=== PATIENT | female | born 1950 | race African-American/Black ===

== ENCOUNTER → 2016-12-10 | Outpatient (CLI) | payer MEDICARE, OTHER ==
--- NOTE | 2016-12-10 12:34 | WOMENS IMAGING REPORT ---
EXAM DESCRIPTION: U/S NON OB PEL W/DOPPLER; TRANSVAGINAL ULTRASOUND COMPLETED DATE/TIME: 12/10/2016 11:19 am REASON FOR STUDY: N93.9 U/S PELVIS; N93.9 COMPARISON: None. TECHNIQUE: Dynamic and static grayscale images acquired of the pelvis via transabdominal and transva ginal approach and recorded on PACS. Additional selected color Doppler and spectral images recorded. LIMITATIONS: None. FINDINGS: UTERUS: Surgically absent. ENDOMETRIAL STRIPE: Surgically absent. CERVIX: No nabothian cysts. RIGHT OVARY: Surgically absent. LEFT OVARY: Surgically absent. FREE FLUID: None noted. OTHER: Normal urinary bladder. IMPRESSION: No abnormality identified. TECHNICAL DOCUMENTATION: JOB ID: [id number]
== END ==
LOC: WI 10:13
PROVIDERS: ATTEND Specialist
DX: N93.9 Abnormal uterine and vaginal bleeding, unspecified (principal)
CPT/HCPCS: 76830; 76856; 93976

== ENCOUNTER → 2017-04-07 | Outpatient (CLI) | payer MEDICARE, OTHER ==
--- NOTE | 2017-04-07 10:49 | WOMENS IMAGING REPORT ---
EXAM DESCRIPTION: BILAT SCREENING MAMMO W/CAD COMPLETED DATE/TIME: 04/07/2017 9:48 am REASON FOR STUDY: SCREENING MAMMO Z12.31 ENCNTR SCREEN MAMMOGRAM FOR MALIGNANT NEOPLASM OF AB COMPARISON: 04/06/2016 and 03/18/2015. TECHNIQUE: Standard craniocaudal and mediolateral oblique views of each breast recorded using [employer] acquisition. LIMITATIONS: None. FINDINGS: No masses, calcifications or architectural distortion. No areas of suspicion. Read with the assistance of CAD. .[facility] - R2 Cenova Version 1.3 .[facility] Imaging - R2 Cenova Version 1.3 .[facility] Imaging - R2 Cenova Version 2.4 .[facility] - R2 Cenova Version 2.4 .[facility] - R2 Market Master Version 9.2 IMPRESSION: NORMAL MAMMOGRAM. BIRADS 1. BREAST DENSITY: b. There are scattered areas of fibroglandular density. BIRAD: 1 NEGATIVE RECOMMENDATION: ROUTINE SCREENING COMMENT: The patient has been notified of the results by letter per SA requirements. Additional no tification policies are in place for contacting patient with suspicious or incomplete findings. Quality ID #[id number]: The [employer] recommends an annual screening mammogram for women aged 40 years or over. This facility utilizes a reminder system to ensure that all patients receive reminder letters, and/or direct phone calls for appointments. This includes reminders for routine scr eening mammograms, diagnostic mammograms, or other Breast Imaging Interventions when appropriate. Th is patient will be placed in the appropriate reminder system. The [employer] (ACR) has developed recommendations for screening MRI of the breast s in certain patient populations, to be used in conjunction with mammography. Breast MRI surveillanc e may be appropriate for women with more than 20% lifetime risk of developing breast cancer as deter mined by genetic testing, significant family history of the disease, or history of mantle radiation f or Hodgkins Disease. ACR Practice Guidelines 2008. TECHNICAL DOCUMENTATION: FINDING NUMBER: (1) ASSESSMENT: (1) JOB ID: [id number] [facility]- All Rights Reserved
== END ==
LOC: WI 08:45
PROVIDERS: ATTEND Family Medicine
DX: Z12.31 Encounter for screening mammogram for malignant neoplasm of breast (principal)
CPT/HCPCS: 77067; G0202

== ENCOUNTER → 2017-08-29 | Outpatient (CLI) | payer MEDICARE, OTHER ==
--- NOTE | 2017-08-29 10:10 | WOMENS IMAGING REPORT ---
EXAM DESCRIPTION: BONE DENSITY HIP/SPINE COMPLETED DATE/TIME: 08/29/2017 9:46 am REASON FOR STUDY: AGE-RELATED OSTEOPROSIS; M81.0 M81.0 AGE-RELATED OSTEOPOROSIS W/O CURRENT PATHOLO [facility] COMPARISON: 12/24/2014 TECHNIQUE: Dual-Energy X-ray Absorptiometry (DEXA) of the AP Spine and Hip. LIMITATIONS: None. FINDINGS: LUMBAR SPINE: The bone mineral density (BMD) measured from L1-L4 in the AP projection correlates with a T-score of -1.9, which is osteopenic as defined by the World Health Organization. This represents an 8% decline in bone density since 2014 HIP: The bone mineral density (BMD) measured in the left femoral neck at the hip correlates with a T-score of -2.0, which is osteopenic as defined by the World Health Organization. This is stable compared t o 2014 IMPRESSION: 1. LUMBAR SPINE: Osteopenic 2. HIP: Osteopenic COMMENT: The World Health Organization defines low BMD as follows: T-score: Normal: Greater than -1.0 Osteopenia: Between -1.0 and -2.5 Osteoporosis: Less than -2.5 without fractures Established osteoporosis: Less than -2.5 with fractures In general, you may wish to consider: Diagnosis Treatment Follow-up DEXA Normal BMD Prevention 2-3 years Osteopenia Prevention/Therapy 1-2 years Osteoporosis Therapy Yearly TECHNICAL DOCUMENTATION: JOB ID: [id number]- All Rights Reserved
== END ==
LOC: WI 08:29
PROVIDERS: ATTEND Family Medicine
DX: M81.0 Age-related osteoporosis without current pathological fracture (principal)
CPT/HCPCS: 77080

== ENCOUNTER → 2018-04-19 | Outpatient (CLI) | payer MEDICARE, OTHER ==
--- NOTE | 2018-04-19 16:57 | WOMENS IMAGING REPORT ---
EXAM DESCRIPTION: BILAT SCREENING MAMMO W/CAD COMPLETED DATE/TIME: 04/19/2018 7:47 am REASON FOR STUDY: SCREENING MAMMO Z12.31 ENCNTR SCREEN MAMMOGRAM FOR MALIGNANT NEOPLASM OF AB COMPARISON: 2013 through 2016. TECHNIQUE: Standard craniocaudal and mediolateral oblique views of each breast recorded using digita l acquisition. LIMITATIONS: None. FINDINGS: No masses, calcifications or architectural distortion. No areas of suspicion. Read with the assistance of CAD. .[facility] - R2 Cenova Version 1.3 .[facility] Imaging - R2 Cenova Version 1.3 .[facility] Imaging - R2 Cenova Version 2.4 .[facility] - R2 Cenova Version 2.4 .[facility] - R2 Clothing Manager Version 9.2 IMPRESSION: NORMAL MAMMOGRAM. BIRADS 1. BREAST DENSITY: b. There are scattered areas of fibroglandular density. BIRAD: 1 NEGATIVE RECOMMENDATION: ROUTINE SCREENING COMMENT: The patient has been notified of the results by letter per SA requirements. Additional no tification policies are in place for contacting patient with suspicious or incomplete findings. Quality ID #[id number]: The [employer] recommends an annual screening mammogram for women aged 40 years or over. This facility utilizes a reminder system to ensure that all patients receive reminder letters, and/or direct phone calls for appointments. This includes reminders for routine scr eening mammograms, diagnostic mammograms, or other Breast Imaging Interventions when appropriate. Th is patient will be placed in the appropriate reminder system. The [employer] (ACR) has developed recommendations for screening MRI of the breast s in certain patient populations, to be used in conjunction with mammography. Breast MRI surveillanc e may be appropriate for women with more than 20% lifetime risk of developing breast cancer as deter mined by genetic testing, significant family history of the disease, or history of mantle radiation f or Hodgkins Disease. ACR Practice Guidelines 2008. TECHNICAL DOCUMENTATION: FINDING NUMBER: (1) ASSESSMENT: (1) JOB ID: [id number] [employer]- All Rights Reserved Reading location - IP/workstation name: [email or web address]
== END ==
LOC: WI 07:12
PROVIDERS: ATTEND Family Medicine
DX: Z12.31 Encounter for screening mammogram for malignant neoplasm of breast (principal)
CPT/HCPCS: 77067

== ENCOUNTER → 2019-03-27 | Outpatient (CLI) | payer MEDICARE, OTHER ==
--- NOTE | 2019-03-27 09:04 | WOMENS IMAGING REPORT ---
EXAM DESCRIPTION: BILAT DIAGNOSTIC MAMMO W/CAD; U/S BREAST UNILAT LIMITED COMPLETED DATE/TIME: 03/27/2019 8:14 am; 03/27/2019 8:52 am REASON FOR STUDY: N63.20 UNSPECIFIED LUMP IN LEFT BREAST; LT BREAST N63.20 N63.20 UNSPECIFIED LUMP IN THE LEFT BREAST, UNSPECIFIED QUAD COMPARISON: Prior imaging from 2016 and subsequent. EXAM PARAMETERS: Standard craniocaudal and mediolateral oblique views of each breast recorded using digital acquisition. Spot compression and true lateral left mammograms. Targeted left breast ultrasound. Read with the assistance of CAD: .[facility] - [employer] Dis[employer] Version 9.2 LIMITATIONS: None. FINDINGS: RIGHT BREAST MASSES: No suspicious masses. CALCIFICATIONS: No new or suspicious calcifications. ARCHITECTURAL DISTORTION: None. DEVELOPING DENSITY: None. ASYMMETRY: None noted. OTHER: No other significant findings. LEFT BREAST MASSES: No suspicious masses. CALCIFICATIONS: No new or suspicious calcifications. ARCHITECTURAL DISTORTION: None. DEVELOPING DENSITY: None. ASYMMETRY: None noted. OTHER: No other significant finding. Left breast ultrasound: Region of interest is in the left areola. Close to 1- 2 o'clock. Mild foca l skin thickening, region of approximately 1 cm subcutaneous prominence. Otherwise nonspecific. No drainable or deeper extending mass. IMPRESSION: Focal area of skin thickening, apparently correlates with a superficial lesion. No yanni k deeper breast extension. Nipple-areolar complex otherwise looks normal. Stable mammograms. BREAST DENSITY: b. There are scattered areas of fibroglandular density. BIRAD: ASSESSMENT: 2 Benign findings. RECOMMENDATION: RECOMMENDED FOLLOW UP: Clinical followup is still necessary. Yearly mammography oth erwise. SPECIFIC INTERVENTION/IMAGING/CONSULTATION RECOMMENDED:No additional intervention/ imaging/consultati on needed at this time. COMMUNICATION:The negative/benign results were communicated to the patient. COMMENT: The patient has been notified of the results by letter per MQSA requirements. Additional no tification policies are in place for contacting patient with suspicious or incomplete findings. Quality ID #[id number]: The [employer] recommends an annual screening mammogram for women aged 40 years or over. This facility utilizes a reminder system to ensure that all patients receive reminder letters, and/or direct phone calls for appointments. This includes reminders for routine scr eening mammograms, diagnostic mammograms, or other Breast Imaging Interventions when appropriate. Th is patient will be placed in the appropriate reminder system. TECHNICAL DOCUMENTATION: FINDING NUMBER: (1) ASSESSMENT: (1) JOB ID: [id number] [employer]- All Rights Reserved Reading location - IP/workstation name: [email or web address]
--- NOTE | 2019-03-27 09:04 | WOMENS IMAGING REPORT ---
EXAM DESCRIPTION: BILAT DIAGNOSTIC MAMMO W/CAD; U/S BREAST UNILAT LIMITED COMPLETED DATE/TIME: 03/27/2019 8:14 am; 03/27/2019 8:52 am REASON FOR STUDY: N63.20 UNSPECIFIED LUMP IN LEFT BREAST; LT BREAST N63.20 N63.20 UNSPECIFIED LUMP IN THE LEFT BREAST, UNSPECIFIED QUAD COMPARISON: Prior imaging from 2016 and subsequent. EXAM PARAMETERS: Standard craniocaudal and mediolateral oblique views of each breast recorded using digital acquisition. Spot compression and true lateral left mammograms. Targeted left breast ultrasound. Read with the assistance of CAD: .[facility] - [employer] Operator Version 9.2 LIMITATIONS: None. FINDINGS: RIGHT BREAST MASSES: No suspicious masses. CALCIFICATIONS: No new or suspicious calcifications. ARCHITECTURAL DISTORTION: None. DEVELOPING DENSITY: None. ASYMMETRY: None noted. OTHER: No other significant findings. LEFT BREAST MASSES: No suspicious masses. CALCIFICATIONS: No new or suspicious calcifications. ARCHITECTURAL DISTORTION: None. DEVELOPING DENSITY: None. ASYMMETRY: None noted. OTHER: No other significant finding. Left breast ultrasound: Region of interest is in the left areola. Close to 1- 2 o'clock. Mild foca l skin thickening, region of approximately 1 cm subcutaneous prominence. Otherwise nonspecific. No drainable or deeper extending mass. IMPRESSION: Focal area of skin thickening, apparently correlates with a superficial lesion. No yanni k deeper breast extension. Nipple-areolar complex otherwise looks normal. Stable mammograms. BREAST DENSITY: b. There are scattered areas of fibroglandular density. BIRAD: ASSESSMENT: 2 Benign findings. RECOMMENDATION: RECOMMENDED FOLLOW UP: Clinical followup is still necessary. Yearly mammography oth erwise. SPECIFIC INTERVENTION/IMAGING/CONSULTATION RECOMMENDED:No additional intervention/ imaging/consultati on needed at this time. COMMUNICATION:The negative/benign results were communicated to the patient. COMMENT: The patient has been notified of the results by letter per MQSA requirements. Additional no tification policies are in place for contacting patient with suspicious or incomplete findings. Quality ID #[id number]: The [employer] recommends an annual screening mammogram for women aged 40 years or over. This facility utilizes a reminder system to ensure that all patients receive reminder letters, and/or direct phone calls for appointments. This includes reminders for routine scr eening mammograms, diagnostic mammograms, or other Breast Imaging Interventions when appropriate. Th is patient will be placed in the appropriate reminder system. TECHNICAL DOCUMENTATION: FINDING NUMBER: (1) ASSESSMENT: (1) JOB ID: [id number] [employer]- All Rights Reserved Reading location - IP/workstation name: [email or web address]
== END ==
LOC: WI 07:30
PROVIDERS: ATTEND Family Medicine
DX: N63.20 Unspecified lump in the left breast, unspecified quadrant (principal)
CPT/HCPCS: 76642; 77066

== ENCOUNTER → 2020-04-18 | Outpatient (CLI) | payer MEDICARE, OTHER ==
--- NOTE | 2020-04-18 12:40 | WOMENS IMAGING REPORT ---
EXAM DESCRIPTION: 3D SCREENING MAMMO BILAT IMAGES COMPLETED DATE/TIME: 04/18/2020 9:14 am REASON FOR STUDY: Z12.31 ENCNTR SCREEN MAMMOGRAM FOR MALIGNANT NEOPLASM OF BREAST Z12.31 ENCNTR SCR EEN MAMMOGRAM FOR MALIGNANT NEOPLASM OF AB COMPARISON: Multiple since 2008 EXAM PARAMETERS: Views: Standard craniocaudal and mediolateral oblique views of each breast recorded using digital acquisition and breast tomosynthesis. Read with the assistance of CAD. .[facility] - [employer] Operator Version 9.2 LIMITATIONS: None. FINDINGS: No suspicious masses, suspicious calcifications or architectural distortion. No areas of c oncern. IMPRESSION: NEGATIVE MAMMOGRAM. BIRADS 1. BREAST DENSITY: b. There are scattered areas of fibroglandular density. BIRAD: ASSESSMENT: 1 NEGATIVE RECOMMENDATION: ROUTINE SCREENING Please continue yearly bilateral screening mammography/tomosynthesis in April 2021 COMMENT: The patient has been notified of the results by letter per MQSA requirements. Additional no tification policies are in place for contacting patient with suspicious or incomplete findings. Quality ID #[id number]: The [employer] recommends an annual screening mammogram for women aged 40 years or over. This facility utilizes a reminder system to ensure that all patients receive reminder letters, and/or direct phone calls for appointments. This includes reminders for routine scr eening mammograms, diagnostic mammograms, or other Breast Imaging Interventions when appropriate. Th is patient will be placed in the appropriate reminder system. TECHNICAL DOCUMENTATION: FINDING NUMBER: (1) ASSESSMENT: (1) JOB ID: [id number] [employer]- All Rights Reserved Reading location - IP/workstation name: [email or web address]
== END ==
LOC: WI 08:58
PROVIDERS: ATTEND Family Medicine
DX: Z12.31 Encounter for screening mammogram for malignant neoplasm of breast (principal)
CPT/HCPCS: 77063; 77067